=== PATIENT | male | born 1980 | race Two or more races ===

== ENCOUNTER 2018-11-19 22:56 | Emergency (ER) | payer MEDICAID ==
[~2018-11-19] VITALS: Ht 170.2 cm; Wt 77.1 kg
[2018-11-19] MEDS ORDERED: Morphine Sulfate 4mg/ml Inj (IV USE ONLY) IVP ONE (23:15)
[2018-11-19] MEDS ORDERED: Pantoprazole Inj IV ONE (23:15)
--- NOTE | 2018-11-19 23:15 | NUR ---
ED Nurse Note: PT walked in c/o RUQ abd pain started today with n/v, pt aA&ox4, gcs=15, skin warm and dry, resp even and unlabored on RA, no active n/v/d at this time, abd tender soft nondistended, active BS, will cont monitor.
--- NOTE | 2018-11-19 23:17 | Emergency Room Report ---
History of Present Illness General Chief Complaint: Abdominal Pain Source: Patient Present Illness HPI This is a 37-year-old male with no past medical history. He presents with chief complaint of bowel pain. Pain is epigastric and upper quadrant. Onset was an hour ago. No relief with 5 Advil. Had this pain before and he took Advil and release resolved itself. Has nausea and vomiting but no diarrhea. No fever chills. No radiation. Most of the pain as epigastric area. No alcohol or drugs. Allergies: Coded Allergies: No Known Allergies (Unverified , 11/19/18) Patient History Past Medical History: see triage record, old chart reviewed Past Surgical History: none Pertinent Family History: none Social History: Denies: smoking Immunizations: other Reviewed Nursing Documentation: PMH: Agreed; PSxH: Agreed Nursing Documentation-PMH Past Medical History: No Stated History Review of Systems Eye: Denies: eye pain, blurred vision ENT: Denies: ear pain, nose congestion, throat swelling Respiratory: Denies: cough, shortness of breath Cardiovascular: Denies: chest pain, palpitations Gastrointestinal: Reports: abdominal pain, nausea, vomiting; Denies: diarrhea Musculoskeletal: Denies: back pain, joint pain Skin: Denies: rash Neurological: Denies: headache, numbness Endocrine: Denies: increased thirst, increased urine Hematologic/Lymphatic: Denies: easy bruising All Other Systems: negative except mentioned in HPI Physical Exam Vital Signs Date Time Temp Pulse Resp B/P (MAP) Pulse Ox O2 Delivery O2 Flow Rate FiO2 11/19/18 22:55 98.2 102 30 150/93 92 Room Air vitals with htn Sp02 EP Interpretation: reviewed, normal General Appearance: well appearing, no apparent distress, alert Head: normocephalic, atraumatic Eyes: bilateral eye PERRL, bilateral eye EOMI ENT: hearing grossly normal, normal pharynx Neck: full range of motion, supple, no meningismus Respiratory: chest non-tender, lungs clear, normal breath sounds Cardiovascular #1: regular rate, rhythm, no murmur Gastrointestinal: normal bowel sounds, no mass, no organomegaly, no bruit, non- distended, tenderness - Epigastric Musculoskeletal: back normal, gait/station normal, normal range of motion Psychiatric: mood/affect normal Skin: warm/dry Medical Decision Making Diagnostic Impression: Primary Impression: Abdominal pain Qualified Codes: R10.13 - Epigastric pain ER Course Patient with epigastric pain. CT scan negative. Most likely reflux versus GERD versus peptic ulcer disease versus gastritis. No evidence of acute abdomen or obstruction. Pain resolved. We'll discharge home. Lab Results Impression labs normal CT/MRI/US Diagnostic Results CT/MRI/US Diagnostic Results : Imaging Test Ordered: CT abdomen and pelvis Impression negative per radiologist Last Vital Signs Date Time Temp Pulse Resp B/P (MAP) Pulse Ox O2 Delivery O2 Flow Rate FiO2 11/19/18 22:55 98.2 102 30 150/93 92 Room Air Status: improved Disposition: HOME, SELF-CARE Condition: Stable Scripts Omeprazole Magnesium (PRILOSEC OTC) 20 Mg Tablet. 20 MG ORAL DAILY, #30 TAB Prov: Dk Summers MD 11/20/18 Additional Instructions: Stop using Advil or Motrin. Follow-up with your doctor in 7 days. Return if worse. Dk Summers MD Nov 19, 2018 23:17
--- NOTE | 2018-11-19 23:20 | NUR ---
ED Nurse Note: LAB SPECIMEN SENT
[2018-11-19 23:31] VITALS: BP_SYST 132; BP_SYST 150; BP_DIAS 83; BP_DIAS 93
[2018-11-19 23:54] LABS: APPEARANCE,URINE CLEAR; BILIRUBIN, URINE NEGATIVE (NEGATIVE); GLUCOSE, URINE (UA) NEGATIVE (NEGATIVE); KETONES,URINE NEGATIVE (NEGATIVE); LEUKOCYTE ESTERASE ,URINE NEGATIVE (NEGATIVE); NITRITE,URINE NEGATIVE (NEGATIVE); PH,URINE 7 (4.5-8.0); UROBILINOGEN,URINE NORMAL MG/DL (0.0-1.0)
--- NOTE | 2018-11-19 23:54 | NUR ---
ED Nurse Note: PT OFF CT
[2018-11-19 23:56] LABS: BASOPHILS % (AUTO) 1.1 % (0.0-2.0); EOSINOPHILS % (AUTO) 1.8 % (0.0-3.0); HEMATOCRIT 45.8 % (42.0-52.0); HEMOGLOBIN 16.1 G/DL (14.2-18.0); MEAN CORPUSCULAR VOLUME 88 FL (80-99); MONOCYTES % (AUTO) 8.9 % (1.0-10.0); NEUTROPHILS % (AUTO) 48.2 % (45.0-75.0); PLATELET COUNT 151 K/UL (150-450); RED BLOOD COUNT 5.18 M/UL (4.70-6.10); RED CELL DISTRIBUTION WIDTH 12.6 % (11.6-14.8); WHITE BLOOD COUNT 7.8 K/UL (4.8-10.8)
[2018-11-20 00:02] LABS: COLOR,URINE YELLOW
[2018-11-20 00:03] LABS: ANION GAP 8 mmol/L (5-15); BLOOD UREA NITROGEN 14 mg/dL (7-18); CALCIUM 8.2 MG/DL (8.5-10.1); CARBON DIOXIDE 28 MMOL/L (21-32); CHLORIDE 103 MMOL/L (98-107); CREATININE 1.1 MG/DL (0.55-1.30); POTASSIUM 3.6 MMOL/L (3.5-5.1); PROTEIN,URINE NEGATIVE (NEGATIVE); SODIUM 139 MMOL/L (136-145)
[2018-11-20 00:08] LABS: ALANINE AMINOTRANSFERASE 35 U/L (12-78); ALBUMIN 3.6 G/DL (3.4-5.0); ALKALINE PHOSPHATASE 84 U/L (46-116); ASPARTATE AMINO TRANSFERASE 10 U/L (15-37); BILIRUBIN,TOTAL 0.2 MG/DL (0.2-1.0)
[2018-11-20] MEDS ORDERED: PRILOSEC OTC20 MG ORAL (01:09)
--- NOTE | 2018-11-20 01:28 | NUR ---
ED Nurse Note: pt cleared to be d/c per ERMD, pt discharge and aftercare instruction provided w/ prescription, pt education done via discussion and handout, pt advised to follow up with pcp or return to ed if sx worsen or new sx develop, pt verbalized understanding and agrees with plan, vss, ambulatory w/ steady gait, IV DC and id band removed, left w/ all belongings.
[2018-11-20 01:32] VITALS: BP 134/86
--- NOTE | 2018-11-20 10:49 | Diagnostic Imaging Report ---
Indication: Epigastric pain for 4 days Technique: Spiral acquisitions obtained through the abdomen and pelvis. No oral contrast utilized, per emergency room physician request No IV contrast utilized, per referring physician request.. Multiplanar reconstructions were generated. Total dose length product 1080.2 mGycm. CTDIvol(s) 18.4 mGy. Dose reduction achieved using automated exposure control Comparison: None Findings: Distal esophagus, stomach, duodenum are unremarkable. The appendix is normal. No evidence of diverticulosis or diverticulitis. No small bowel distention. No free or loculated intraperitoneal gas or fluid is evident. There is a tiny fat-containing right inguinal hernia Lack of IV contrast limits assessment of solid organs. The liver, gallbladder, bile ducts, pancreas, spleen, adrenals, kidneys are all unremarkable. No retroperitoneal or mesenteric mass or adenopathy. No pelvic mass or adenopathy. Prostate bladder and seminal vesicles are unremarkable. The included lung bases are clear except for minimal posterior dependent atelectasis. The bones are unremarkable. There are degenerative changes of the lumbosacral junction noted Impression: Essentially unremarkable exam. No acute findings Incidental findings of small fat-containing right inguinal hernia, degenerative changes of the lumbosacral junction This agrees with the preliminary interpretation provided overnight by [facility]. The CT scanner at [facility] is accredited by the [employer] and the scans are performed using protocols designed to limit radiation exposure to as low as reasonably achievable to attain images of sufficient resolution adequate for diagnostic evaluation.
== END 2018-11-20 01:28 | disposition home or self-care (01) ==
LOC: EDBD 22:56 → EMR 23:30
DX: R10.13 Epigastric pain (principal); K40.90 Unilateral inguinal hernia, without obstruction or gangrene, not specified as recurrent
CPT/HCPCS: 36415; 74176; 80053; 81003; 83690; 85025; 96361; 96374; 96375; 99284; C9113; J2270; J2405

== ENCOUNTER 2019-05-01 01:54 | Emergency (ER) | payer MEDICAID ==
[~2019-05-01] VITALS: Ht 182.9 cm; Wt 86.2 kg
[~2019-05-01 01:54] MED LIST: PRILOSEC OTC20 MG ORAL
[2019-05-01 02:00] VITALS: BP 143/78
--- NOTE | 2019-05-01 02:00 | NUR ---
ED Nurse Note: Pt AAOx4, vss, and ot states pain is 10 out of 10. Pt BIBA 829 c/o mid abd pain since 3 hrs ago. Pt stated n/v with abd pain. Diarrhea for 2 days. 10/10 pain. unk cause
--- NOTE | 2019-05-01 02:12 | Emergency Room Report ---
History of Present Illness General Chief Complaint: Abdominal Pain Source: Patient Present Illness HPI Disclaimer: Please note that this report is being documented using Backtrace I/O technology. This can lead to erroneous entry secondary to incorrect interpretation by the dictating instrument. HPI: 38-year-old male with no reported medical history presents for evaluation of sudden onset abdominal pain. Pain started abruptly 3 hours ago and awoke him from sleep. He describes stabbing periumbilical pain that sometimes radiates to the right lower quadrant. He feels diaphoretic, nauseated and had several episodes of bilious emesis. States he has had diarrhea for 2 days, nonbloody. Denies fevers, chest pain or shortness of breath. States he had a similar episode abdominal pain approximately 3 months ago where he was seen in the emergency department. A CT scan at that time did not show any significant pathology. He has no history of intra-abdominal surgery. Does not take any blood thinning medications. PMH: Denies PSH: Denies Allergies: Denies Social Hx: Denies drug or alcohol use Allergies: Coded Allergies: No Known Allergies (Unverified , 11/19/18) Nursing Documentation-PMH Past Medical History: No Stated History Review of Systems All Other Systems: negative except mentioned in HPI Physical Exam Vital Signs Date Time Temp Pulse Resp B/P (MAP) Pulse Ox O2 Delivery O2 Flow Rate FiO2 05/01/19 01:50 98.2 90 18 143/78 (99) 99 Room Air General: Awake and alert, appears uncomfortable, writhing in the bed HEENT: NC/AT. EOMI. moist pedis membranes Cardiovascular: RRR. S1 and S2 normal. No murmur appreciated Resp: Normal work of breathing. No cough, wheezing or crackles appreciated Abdomen: Abdomen is soft, nondistended. Tender to palpation particularly in the periumbilical region. No obvious rebound. No mass appreciated. Non- peritonitic at this time Skin: Intact. No abrasions, laceration or rash over the exposed skin MSK: Normal tone and bulk. Moving all extremities. No obvious deformity. Neuro: Awake and alert. Mentating appropriately. Medical Decision Making Diagnostic Impression: Primary Impression: Abdominal pain ER Course 38-year-old male presents for evaluation of sudden onset abdominal pain for the past 3 hours accompanied by vomiting and 2 days of diarrhea. Differential includes was not limited to appendicitis, bowel obstruction, GERD, esophageal ulcer, cholecystitis, pancreatitis, diverticulitis. We will start IV fluids, give pain medication, antiemetics, broad labs sent and the patient will go for CT scan of the abdomen and pelvis with IV contrast. Laboratory Tests Test 05/01/19 02:07 White Blood Count 6.9 K/UL (4.8-10.8) Red Blood Count 5.48 M/UL (4.70-6.10) Hemoglobin 16.5 G/DL (14.2-18.0) Hematocrit 48.5 % (42.0-52.0) Mean Corpuscular Volume 88 FL (80-99) Mean Corpuscular Hemoglobin 30.1 PG (27.0-31.0) Mean Corpuscular Hemoglobin Concent 34.1 G/DL (32.0-36.0) Red Cell Distribution Width 12.4 % (11.6-14.8) Platelet Count 160 K/UL (150-450) Mean Platelet Volume 8.5 FL (6.5-10.1) Neutrophils (%) (Auto) 50.0 % (45.0-75.0) Lymphocytes (%) (Auto) 34.6 % (20.0-45.0) Monocytes (%) (Auto) 13.3 % (1.0-10.0) H Eosinophils (%) (Auto) 1.3 % (0.0-3.0) Basophils (%) (Auto) 0.7 % (0.0-2.0) Sodium Level 139 MMOL/L (136-145) Potassium Level 3.6 MMOL/L (3.5-5.1) Chloride Level 104 MMOL/L (98-107) Carbon Dioxide Level 25 MMOL/L (21-32) Anion Gap 10 mmol/L (5-15) Blood Urea Nitrogen 13 mg/dL (7-18) Creatinine 1.1 MG/DL (0.55-1.30) Estimate Glomerular Filtration Rate > 60 mL/min (>60) Glucose Level 156 MG/DL (74-106) H Calcium Level 9.0 MG/DL (8.5-10.1) Total Bilirubin 0.3 MG/DL (0.2-1.0) Aspartate Amino Transferase (AST) 16 U/L (15-37) Alanine Aminotransferase (ALT) 28 U/L (12-78) Alkaline Phosphatase 93 U/L (46-116) Total Protein 7.4 G/DL (6.4-8.2) Albumin 3.6 G/DL (3.4-5.0) Globulin 3.8 g/dL Albumin/Globulin Ratio 0.9 (1.0-2.7) L Lipase 193 U/L (73-393) CT/MRI/US Diagnostic Results CT/MRI/US Diagnostic Results : Impression Preliminary Findings Only See Final Report For Complete Findings CT ABDOMEN & PELVIS With Contrast: Comparison 11/19/2018 No acute abnormality. Normal appendix. No bowel obstruction. No hydronephrosis. Stable small fat-containing hernia. Radiologist: Lisa Mak MD Study ready at 03:49 and initial results transmitted at 03:58 Reevaluation Time: 04:10 Last Vital Signs Date Time Temp Pulse Resp B/P (MAP) Pulse Ox O2 Delivery O2 Flow Rate FiO2 05/01/19 01:50 98.2 90 18 143/78 (99) 99 Room Air Status: improved Reevaluation Impression Labs and CT have returned largely unremarkable. No evidence of obstruction or other significant acute pathology. The patient's abdominal pain is now resolved. He is received IV fluids. This may be gastritis or GERD and the patient be started on a daily antacid. He can follow-up with clinic for referral to gastroenterology for possible EGD. We discussed reasons to return to the emergency department. He understands and agrees with this treatment plan. Disposition: HOME, SELF-CARE Condition: Improved Scripts Famotidine (FAMOTIDINE) 20 Mg Tablet 20 MG ORAL DAILY, #30 TAB 0 Refills Prov: Corbin Perez MD 05/01/19 Corbin Perez MD May 01, 2019 02:12
[2019-05-01] MEDS ORDERED: Omnipaque-300 100ml vial INJ PRN (02:15)
[2019-05-01] MEDS ORDERED: Morphine Sulfate 4mg/ml Inj (IV USE ONLY) IVP ONE (02:15)
[2019-05-01 02:23] LABS: BASOPHILS % (AUTO) 0.7 % (0.0-2.0); EOSINOPHILS % (AUTO) 1.3 % (0.0-3.0); HEMATOCRIT 48.5 % (42.0-52.0); HEMOGLOBIN 16.5 G/DL (14.2-18.0); LYMPHOCYTES % (AUTO) 34.6 % (20.0-45.0); MEAN CORPUSCULAR VOLUME 88 FL (80-99); MONOCYTES % (AUTO) 13.3 % (1.0-10.0); PLATELET COUNT 160 K/UL (150-450); RED BLOOD COUNT 5.48 M/UL (4.70-6.10); RED CELL DISTRIBUTION WIDTH 12.4 % (11.6-14.8); WHITE BLOOD COUNT 6.9 K/UL (4.8-10.8)
[2019-05-01 02:30] LABS: ANION GAP 10 mmol/L (5-15); BLOOD UREA NITROGEN 13 mg/dL (7-18); CARBON DIOXIDE 25 MMOL/L (21-32); CHLORIDE 104 MMOL/L (98-107); CREATININE 1.1 MG/DL (0.55-1.30); POTASSIUM 3.6 MMOL/L (3.5-5.1); SODIUM 139 MMOL/L (136-145)
[2019-05-01 02:34] LABS: ALANINE AMINOTRANSFERASE 28 U/L (12-78); ALBUMIN 3.6 G/DL (3.4-5.0); ALBUMIN/GLOBULIN RATIO 0.9 (1.0-2.7); ALKALINE PHOSPHATASE 93 U/L (46-116); ASPARTATE AMINO TRANSFERASE 16 U/L (15-37); BILIRUBIN,TOTAL 0.3 MG/DL (0.2-1.0)
--- NOTE | 2019-05-01 03:59 | Diagnostic Imaging Report ---
Indication: Abdominal pain Technique: Continuous helical transaxial imaging of the abdomen and pelvis was obtained from the lung bases to the pubic symphysis during intravenous contrast administration. Coronal 2-D reformats were also obtained. Study obtained in a Siemens sensation [address] Automatic Exposure Control was utilized. Total Dose length Product (DLP): 958.[address] Dose Index Volume (CTDIvol): 18.16 mGy Comparison: None Findings: There is a mild posterior basal atelectasis demonstrated. The liver and spleen, gallbladder, adrenal glands and kidneys, pancreas appear unremarkable. Bowel gas pattern is nonobstructive. The appendix is seen and normal. There is a right inguinal hernia containing fat. Bladder is mildly distended on this study. There is no free fluid. Vacuum phenomenon narrowing of the L5-S1 intervertebral disc demonstrated. IMPRESSION: No acute findings. Normal appendix Degenerative disc disease at L5-S1. Small right inguinal hernia containing fat. [facility] has communicated the preliminary results to the Emergency Department. Their findings are largely concordant with this report. The CT scanner at [facility] is accredited by the [employer] and the scans are performed using dose optimization techniques as appropriate to a performed exam including Automatic Exposure control.
[2019-05-01] MEDS ORDERED: FAMOTIDINE20 MG ORAL (04:09)
--- NOTE | 2019-05-01 04:09 | NUR ---
ED Nurse Note: Pt labs sent, imaging done, , pt states pain is 0/10, and rt hand 18g in place.
[2019-05-01 04:20] VITALS: BP 140/85
== END 2019-05-01 04:20 | disposition home or self-care (01) ==
LOC: EDBD 01:54 → EMR 02:30
DX: R10.30 Lower abdominal pain, unspecified (principal)
CPT/HCPCS: 36415; 74177; 80053; 83690; 85025; 96361; 96374; 96375; J2270; J2405; Q9967; Z7502; 99284

== ENCOUNTER 2019-07-10 05:25 | Emergency (ER) | payer MEDICAID ==
[~2019-07-10] VITALS: Ht 180.3 cm; Wt 81.6 kg
[~2019-07-10 05:25] MED LIST changes: +FAMOTIDINE20 MG ORAL
[2019-07-10 05:30] VITALS: BP 135/86
--- NOTE | 2019-07-10 05:30 | NUR ---
ED Nurse Note: Pt is aaox3, vss, no acute distress. Pt states pain ia 10 in his ABD. Pt BIBA LAFD RA29 from home. Pain stared at 1900. Recently seen at [facility] for same reason
[2019-07-10] MEDS ORDERED: REGLAN10 MG ORAL (05:41)
[2019-07-10] MEDS ORDERED: FAMOTIDINE20 MG ORAL (05:41)
--- NOTE | 2019-07-10 05:41 | Emergency Room Report ---
History of Present Illness General Chief Complaint: Abdominal Pain Source: Patient Present Illness HPI Is a 38-year-old male with no past medical history. He presents with chief complaint of epigastric pain. Onset is acute occurred tonight. He has this frequently. Was just at [facility] yesterday for the same thing. He had lab work done and CT scan which show her inguinal hernia. He has couple CAT scan here was also unremarkable. Labs unremarkable. Pain is sharp. 9 out of 10. Has nausea but no vomiting. No radiation. Denies any other complaint. Allergies: Coded Allergies: No Known Allergies (Unverified , 11/19/18) Patient History Past Medical History: see triage record, old chart reviewed Past Surgical History: none Pertinent Family History: none Social History: Denies: smoking Immunizations: other Reviewed Nursing Documentation: PMH: Agreed; PSxH: Agreed Nursing Documentation-PMH Past Medical History: No Stated History Review of Systems Eye: Denies: eye pain, blurred vision ENT: Denies: ear pain, nose congestion, throat swelling Respiratory: Denies: cough, shortness of breath Cardiovascular: Denies: chest pain, palpitations Gastrointestinal: Reports: abdominal pain; Denies: diarrhea, nausea, vomiting Musculoskeletal: Denies: back pain, joint pain Skin: Denies: rash Neurological: Denies: headache, numbness Endocrine: Denies: increased thirst, increased urine Hematologic/Lymphatic: Denies: easy bruising All Other Systems: negative except mentioned in HPI Physical Exam Vital Signs Date Time Temp Pulse Resp B/P (MAP) Pulse Ox O2 Delivery O2 Flow Rate FiO2 07/10/19 05:27 99.1 122 14 143/88 (106) Vitals with tachycardia. repeat heart rate 98 Sp02 EP Interpretation: reviewed, normal General Appearance: well appearing, no apparent distress, alert Head: normocephalic, atraumatic Eyes: bilateral eye PERRL, bilateral eye EOMI ENT: hearing grossly normal, normal pharynx Neck: full range of motion, supple, no meningismus Respiratory: chest non-tender, lungs clear, normal breath sounds Cardiovascular #1: regular rate, rhythm, no murmur Gastrointestinal: normal bowel sounds, no mass, no organomegaly, no bruit, non- distended, tenderness - Epigastric Musculoskeletal: back normal, normal range of motion, gait/station normal Psychiatric: mood/affect normal Medical Decision Making Diagnostic Impression: Primary Impression: Abdominal pain Qualified Codes: R10.13 - Epigastric pain ER Course Presents with epigastric pain. This is a recurrent issue for him. He has work- up in the past and just had work-up done yesterday. I see no need for repeat labs or CT scan. Abdominal exam is benign. It is soft. No guarding or rebound. No evidence of any obstruction. Better after dose of morphine. Will discharge home. Differentials included but not limited to gastritis, hernia, obstruction, gallbladder disease, sepsis abuse to name a few. Last Vital Signs Date Time Temp Pulse Resp B/P (MAP) Pulse Ox O2 Delivery O2 Flow Rate FiO2 07/10/19 05:27 99.1 122 14 143/88 (106) Status: improved Disposition: HOME, SELF-CARE Condition: Stable Scripts Metoclopramide Hcl* (REGLAN*) 10 Mg Tablet 10 MG ORAL THREE TIMES A DAY, #30 TAB Prov: Dk Summers MD 07/10/19 Famotidine* (Pepcid 20mg tablet*) 20 Mg Tablet 20 MG ORAL TWICE A DAY, #60 TAB 0 Refills Prov: Dk Summers MD 07/10/19 Patient Instructions: Abdominal Pain, Adult Additional Instructions: Follow-up with your doctor in 7 days. You may need a referral to see a quality control clerk for endoscopy. Return if symptoms worsen. Dk Summers MD Jul 10, 2019 05:41
[2019-07-10] MEDS ORDERED: Morphine Sulfate 2mg/ml Inj(IV/IM USE ONLY) IM ONE (05:45)
[2019-07-10 05:55] VITALS: BP 124/87
[2019-07-10] MEDS ORDERED: HYDROcodone/Acetamin 5/325 tab ORAL ONE (06:15)
[2019-07-10 06:23] VITALS: BP 124/87
--- NOTE | 2019-07-10 06:23 | NUR ---
ER DISCHARGE NOTE: Patient is cleared to be discharged per ERMD, pt is aox4, on room air, with stable vital signs. pt was given dc and prescription instructions, pt was able to verbalize understanding, pt id band and iv site removed without complications. pt is able to ambulate with steady gait. pt took all belongings. Pt states pain has improved.
== END 2019-07-10 06:23 | disposition home or self-care (01) ==
LOC: EDBD 05:25 → EDUNIT# 05:25 → EMR 06:02
DX: R10.13 Epigastric pain (principal)
CPT/HCPCS: 80307; 96372; J2270; Z7502; 99283